=== PATIENT | female | born 1960 | race Caucasian/White ===

== ENCOUNTER 2016-05-05 22:42 | Emergency (ER) | payer OTHER ==
[~2016-05-05] VITALS: Ht 162.6 cm; Wt 49.9 kg
--- NOTE | 2016-05-05 23:00 | NUR ---
BB SELF; AMBULATORY TO ER BED 6 C/O SUDDEN ONSET NUNEZ X 30 MIN. PT AOX3 RR EVEN AND UNLABORED. NO SOB NOTED. NAD NOTED. NO NVD AT THIS TIME. PT NOT DIAPHORETIC. PT GOWNED AND PLACED ON MONITOR WAITING FOR MD CHIN.
--- NOTE | 2016-05-05 23:01 | NUR ---
DR. LUNSFORD AT BEDSIDE FOR EVAL.
[2016-05-05] MEDS ORDERED: IV NS 0.9% 250 ML IV ONE (23:04)
[2016-05-05] MEDS ORDERED: IOHEXOL-350 100 ML VIAL IV ONE (23:04)
[2016-05-05] MEDS ORDERED: ONDANSETRON HCL/PF 4 MG/2 ML VIAL ONE (23:07)
[2016-05-05] MEDS ORDERED: MORPHINE SULFATE INJ 4 MG/ML DISP.SYRIN ONE (23:07)
--- NOTE | 2016-05-05 23:13 | NUR ---
PT TO CT.
--- NOTE | 2016-05-05 23:25 | NUR ---
PT RETURNED FROM CT.
[2016-05-05] MEDS ORDERED: ONDANSETRON HCL/PF 4 MG/2 ML VIAL IVP ONE (23:30)
[2016-05-05] MEDS ORDERED: MORPHINE SULFATE INJ 2 MG/ML DISP.SYRIN IV ONE (23:30)
--- NOTE | 2016-05-05 23:37 | NUR ---
LAB AT BEDSIDE FOR BLOOD DRAW.
[2016-05-05 23:44] LABS: BASOPHILS % (AUTO) 0.7 % (0.0-2.0); EOSINOPHILS % (AUTO) 0.3 % (0.0-6.0); HEMATOCRIT 37 % (33-45); HEMOGLOBIN 12.9 g/dL (11.5-14.8); MEAN CORPUSCULAR HEMOGLOBIN 31 PG (26.0-33.0); MEAN CORPUSCULAR HGB CONC 35 g/dl (31.0-36.0); MEAN CORPUSCULAR VOLUME 89 fL (82-100); MONOCYTES # (AUTO) 0.5 /CMM (0.1-1.30); MONOCYTES % (AUTO) 6.7 % (2.0-12.0); NEUTROPHILS # (AUTO) 4.3 /CMM (1.8-8.9); NEUTROPHILS % (AUTO) 62.3 % (43.0-81.0); PLATELET COUNT (AUTO) 232 /CMM (150-450); RDW COEFFICIENT OF VARIATION 11.8 (11.5-15.0); RED BLOOD CELL COUNT(AUTO) 4.14 MIL/uL (4.0-5.2); WHITE BLOOD COUNT (AUTO) 6.8 K/uL (4.3-11.0)
[2016-05-05 23:54] LABS: CALCIUM, SERUM 8.4 mg/dL (8.5-10.1); CREATININE 0.8 mg/dL (0.6-1.3)
[2016-05-06 00:01] LABS: INR 1.1 (0.87-1.13); PROTHROMBIN TIME 11.5 SECS (9.5-12.7)
--- NOTE | 2016-05-06 00:48 | NUR ---
IV removed. Catheter intact and site benign. Pressure and 4x4 applied to site. No bleeding noted. Patient discharged to home in stable condition. Written and verbal after care instructions given. Patient verbalizes understanding of instruction. ambulatory with a steady gait
[2016-05-06 00:49] VITALS: BP 113/71
== END 2016-05-06 00:50 | disposition home or self-care (01) ==
LOC: ER 22:42
DX: R51 Headache (principal); R79.1 Abnormal coagulation profile
CPT/HCPCS: 36415; 70496; 70498; 80048; 85025; 85730; 96374; 96375; 99285; A4606; J2270; J2405; J7050; Q9967; Z7610